=== PATIENT | male | born 1985 | race Caucasian/White ===

== ENCOUNTER 2016-11-24 12:33 | Emergency (ER) | payer MEDICAID ==
[~2016-11-24] VITALS: Wt 60.0 kg
[2016-11-24 13:56] LABS: BASOPHILS % 0.3 % (0.0-2.0); EOSINOPHILS # 0.1 10^3/ul (0.0-0.5); EOSINOPHILS % 0.4 % (0.0-7.0); HEMATOCRIT 39.8 % (42.0-52.0); HEMOGLOBIN 13.4 g/dl (14.0-18.0); LYMPHOCYTES # 1.2 10^3/ul (0.8-2.9); LYMPHOCYTES % 8.7 % (15.0-51.0); MEAN CORPUSCULAR HEMOGLOBIN 29.5 pg (29.0-33.0); MEAN CORPUSCULAR HGB CONC 33.6 g/dl (32.0-37.0); MEAN CORPUSCULAR VOLUME 87.6 fl (82.0-101.0); MEAN PLATELET VOLUME 8.3 fl (7.4-10.4); MONOCYTE # 0.9 10^3/ul (0.3-0.9); MONOCYTES % 6.5 % (0.0-11.0); NEUTROPHIL # 11.5 10^3/ul (1.6-7.5); NEUTROPHILS % 84.1 % (39.0-77.0); PLATELET COUNT 357 10^3/UL (140-440); RED BLOOD COUNT 4.55 10^6/ul (4.70-6.10); RED CELL DISTRIBUTION WIDTH 12.7 % (11.5-14.5); UNCORRECTED WBC 13.6 10^3/ul (4.8-10.8); WHITE BLOOD COUNT 13.6 10^3/ul (4.8-10.8)
[2016-11-24 13:58] LABS: CONDITION 1
[2016-11-24 14:09] LABS: ALBUMIN 3.8 g/dl (3.3-4.9)
[2016-11-24 14:10] LABS: POTASSIUM 4.3 mmol/L (3.5-5.1)
[2016-11-24 14:12] LABS: BILIRUBIN,INDIRECT 0.4 mg/dl (0-1.1); BILIRUBIN,TOTAL 0.4 mg/dl (0.2-1.3); CREATININE 0.85 mg/dl (0.61-1.24); TOTAL PROTEIN 7.2 g/dl (6.1-8.1)
[2016-11-24 14:13] LABS: ALBUMIN/GLOBULIN RATIO 1.11; CALCIUM 8.9 mg/dl (8.4-10.2)
[2016-11-24 14:40] LABS: ADD UMIC YES; URINE BILIRUBIN (Dip) NEGATIVE (NEGATIVE); URINE BLOOD (Dip) NEGATIVE (NEGATIVE); URINE COLOR LT. YELLOW (YELLOW); URINE GLUCOSE (Dip) NEGATIVE (NEGATIVE); URINE KETONES (Dip) NEGATIVE (NEGATIVE); URINE LEUKOCYTE ESTERASE (Dip) 1+ (NEGATIVE); URINE NITRITE (Dip) NEGATIVE (NEGATIVE); URINE TOTAL PROTEIN (Dip) TRACE (NEGATIVE); URINE UROBILINOGEN (Dip) 1.0 E.U./dL (0.1-1.0)
[2016-11-24 14:57] LABS: BACTERIA,URINE FEW; SQUAMOUS EPITHELIAL CELL,UR RARE; URINE RBCS 0-2 /HPF (0)
[2016-11-24 16:19] LABS: C-REACTIVE PROTEIN 14.1 mg/dl (0.0-0.9)
[2016-11-24] MEDS ORDERED: ACETAMINOPHEN 500 MG TAB PO STA (16:41)
[2016-11-24] MEDS ORDERED: AZITHROMYCIN 250 MG TAB PO ONE (17:00)
[2016-11-24] MEDS ORDERED: IBUPROFEN 600 MG TAB PO ONE (17:00)
[2016-11-24] MEDS ORDERED: CEFTRIAXONE 250 MG INJ IM ONE (17:00)
[2016-11-24] MEDS ORDERED: LIDOCAINE 2% (MDV) 20 ML INJ INJ ONE (17:00)
[2016-11-24] MEDS ORDERED: IBUP-1542 PO (17:06)
[2016-11-24] MEDS ORDERED: DOXY100T20 PO (17:06)
[2016-11-24] MEDS ORDERED: CIPR500T4 PO (17:09)
--- NOTE | 2016-11-24 17:20 | ERD ---
ER Documentation Chief Complaint Date/Time DATE: 11/24/16 TIME: 17:14 Chief Complaint L FOOT REDNESS SINCE YESTERDAY NO TRAUMA. NO BITES. HPI This is a 31-year-old male presents to the ER with left foot and left ankle redness that extends up to the middle of his leg that started yesterday. Patient states that this morning he noticed right foot redness that extends up to his ankle. Patient denies any trauma. He denies any bug bites. He denies any abrasions or cuts. Patient denies any fevers or chills. Patient states that area is also slightly painful. He does admit some numbness and tingling of both feet. He denies any IV drug use. He is currently sexually active and has had unprotected sexual intercourse. He does admit to some urinary dysuria. He denies any penile discharge or lesions. ROS 12 point review of systems was done, all negative except per HPI. Medications Home Meds Active Scripts Ciprofloxacin Hcl* (Ciprofloxacin Hcl*) 500 Mg Tablet, 500 MG PO BID for 7 Days , TAB Prov:EMA NOEL 11/24/16 Ibuprofen* (Motrin*) 600 Mg Tab, 600 MG PO Q6, #30 TAB Prov:EMA NOEL 11/24/16 Doxycycline Hyclate* (Doxycycline Hyclate*) 100 Mg Tablet.dr, 100 MG PO BID for 7 Days, TAB Prov:EMA NOEL C 11/24/16 PMhx/Soc Medical and Surgical Hx: pt denies Medical Hx, pt denies Surgical Hx Hx Alcohol Use: No Hx Substance Use: No Hx Tobacco Use: No Smoking Status: Never smoker Physical Exam Vitals Vital Signs Date Time Temp Pulse Resp B/P Pulse Ox O2 Delivery O2 Flow Rate FiO2 11/24/16 12:43 100.0 105 20 125/76 99 Physical Exam GENERAL: The patient is well developed and appropriate for usual state of health , in no apparent distress. HEENT: Atraumatic. CHEST: Clear to auscultation bilaterally. There are no rales, wheezes or rhonchi. HEART: Regular rate and rhythm. No murmurs, clicks, rubs or gallops. EXTREMITIES: Left foot: erythematous and warm to the touch from the mid foot up to the distal 1/3 of the tibia. Full and non painful ROM of ankle. +2pulses. no abrasions. Right foot: erythema, and warm to the touch from the midfoot to the ankle. full and non painful ROM of the ankle. NEURO: Alert and oriented. Result Diagram: 11/24/16 1340 11/24/16 1340 Results 24 hrs Laboratory Tests Test 11/24/16 13:40 11/24/16 14:00 Alanine Aminotransferase (ALT/SGPT) 37IU/L Albumin 3.8g/dl Albumin/Globulin Ratio 1.11 Alkaline Phosphatase 96IU/L Anion Gap 14 Aspartate Amino Transf (AST/SGOT) 35IU/L Basophils # 0.010^3/ul Basophils % 0.3% Blood Urea Nitrogen 17mg/dl C-Reactive Protein 14.1mg/dl Calcium Level 8.9mg/dl Carbon Dioxide Level 30mmol/L Chloride Level 100mmol/L Creatinine 0.85mg/dl Direct Bilirubin 0.00mg/dl Eosinophils # 0.110^3/ul Eosinophils % 0.4% Erythrocyte Sedimentation Rate 50mm/Hr Globulin 3.40g/dl Glucose Level 103mg/dl Hematocrit 39.8% Hemoglobin 13.4g/dl Indirect Bilirubin 0.4mg/dl Lymphocytes # 1.210^3/ul Lymphocytes % 8.7% Mean Corpuscular Hemoglobin 29.5pg Mean Corpuscular Hemoglobin Concent 33.6g/dl Mean Corpuscular Volume 87.6fl Mean Platelet Volume 8.3fl Monocytes # 0.910^3/ul Monocytes % 6.5% Neutrophils # 11.510^3/ul Neutrophils % 84.1% Nucleated Red Blood Cells # 0.010^3/ul Nucleated Red Blood Cells % 0.0/100WBC Platelet Count 59314^3/UL Potassium Level 4.3mmol/L Red Blood Count 4.5510^6/ul Red Cell Distribution Width 12.7% Sodium Level 140mmol/L Total Bilirubin 0.4mg/dl Total Protein 7.2g/dl White Blood Count 13.610^3/ul Urine Bacteria FEW Urine Bilirubin NEGATIVE Urine Clarity CLEAR Urine Color LT. YELLOW Urine Glucose NEGATIVE% Urine Hemoglobin NEGATIVE Urine Ketones NEGATIVE Urine Leukocyte Esterase 1+ Urine Microscopic RBC 0-2/HPF Urine Microscopic WBC 5-10/HPF Urine Nitrite NEGATIVE Urine Specific [place] 1.025 Urine Squamous Epithelial Cells RARE Urine Total Protein TRACE Urine Urobilinogen 1.0 E.U./dL Urine pH 6.5 Current Medications Medications (Trade) Dose Ordered Sig/Yony Route PRN Reason Start Time Stop Time Status Last Admin Dose Admin Ibuprofen (Motrin) 600 mg ONCE ONCE PO 11/24/16 17:00 11/24/16 17:01 DC 11/24/16 16:57 Ceftriaxone Sodium (Rocephin) 250 mg ONCE ONCE IM 11/24/16 17:00 11/24/16 17:01 DC 11/24/16 16:57 Azithromycin (Zithromax) 1,000 mg ONCE ONCE PO 11/24/16 17:00 11/24/16 17:01 DC 11/24/16 16:57 Acetaminophen (Tylenol Tab) 1,000 mg ONCE STAT PO 11/24/16 16:41 11/24/16 16:43 DC 11/24/16 16:56 Lidocaine (Xylocaine 2% (Mdv) 20 ml) 20 ml ONCE ONCE INJ 11/24/16 17:00 11/24/16 17:01 DC 11/24/16 16:57 Procedures/MDM This is a 31-year-old male presents to the ER with bilateral foot redness and pain. Patient did not have any history of trauma. Suspicion for fracture or dislocation is low. Patient did have accompanied urinary dysuria. He was found to have a urinary tract infection. I considered Bobo's syndrome however erythema of both extremities makes this unlikely. I doubt septic joint or septic arthritis. Patient has full range of motion of both lower extremities. I discussed this case thoroughly with Dr. Land and he agrees with my medical decision making. Patient will be treated for cellulitis and urethritis. He was given Rocephin and azithromycin here in the ER and he will be sent home with doxycycline and Cipro. She will also be sent home with ibuprofen for any fevers. I doubt compartment syndrome , rhabdomyolysis, myositis. Patient is to follow-up with his primary care doctor within 1-2 days or return to ER sooner if symptoms worsen. Medical decision making sure with the patient understands and agrees with plan. Departure Diagnosis: Primary Impression: Urethritis Additional Impression: Cellulitis Condition: Stable Patient Instructions: Cellulitis Additional Instructions: Call your primary care doctor TOMORROW for an appointment during the next 1-2 days.See the doctor sooner or return here if your condition worsens before your appointment time. EMA NOEL Nov 24, 2016 17:20
[2016-11-24 17:27] VITALS: BP 122/74; PULSE 78; RESP 16; TEMP 98.8
== END 2016-11-24 17:28 | disposition home or self-care (01) ==
LOC: FTE 12:33
DX: N34.2 Other urethritis (principal); L03.115 Cellulitis of right lower limb; L03.114 Cellulitis of left upper limb
CPT/HCPCS: 80053; 81001; 85025; 85651; 86140; J0696; Z7610; 36415; 81003; 96372

== ENCOUNTER 2018-07-19 21:27 | Emergency (ER) | END 2018-07-19 22:06 | disposition left against medical advice (07) ==